=== PATIENT | female | born 1995 | race Caucasian/White ===

== ENCOUNTER 2019-02-14 11:04 | Emergency (ER) | payer MEDICAID ==
[~2019-02-14] VITALS: Ht 170.2 cm; Wt 82.0 kg
[~2019-02-14 11:04] MED LIST: NORG1TAB77 PO
--- NOTE | 2019-02-14 12:50 | NUR ---
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
--- NOTE | 2019-02-14 13:19 | NUR ---
DR BOLTON AT BEDSIDE TO EVRIGO PT
[2019-02-14] MEDS ORDERED: chlordiazePOXIDE 25mg capsule PO ONE (13:30)
--- NOTE | 2019-02-14 13:32 | NUR ---
DROP HAMMER PILE DRIVER OPERATOR AT BEDSIDE
[2019-02-14] MEDS ORDERED: DIME240C2 PO (13:38)
[2019-02-14] MEDS ORDERED: LURA80TA3 PO (13:38)
[2019-02-14] MEDS ORDERED: FLUO40CA10 PO (13:38)
[2019-02-14 13:44] LABS: URINE HCG NEGATIVE (NEG)
[2019-02-14 13:47] LABS: BASOPHILS # (AUTO) 0.1 X10'3 (0-0.2); EOSINOPHILS # (AUTO) 0.3 X10'3 (0-0.9); EOSINOPHILS % (AUTO) 4.4 % (0-6); HEMATOCRIT 40.8 % (35.0-45.0); HEMOGLOBIN 13.9 g/dl (12.0-16.0); LYMPHOCYTES # (AUTO) 1.7 X10'3 (1.1-4.8); MEAN CORPUSCULAR HEMOGLOBIN 32.4 PG (27.0-31.0); MEAN CORPUSCULAR HGB CONC 34.1 g/dL (33.0-36.5); MEAN CORPUSCULAR VOLUME 94.9 FL (78-98); MEAN PLATELET VOLUME 7.3 FL (7.4-10.4); MONOCYTES # (AUTO) 0.7 X10'3 (0-0.9); MONOCYTES % (AUTO) 11.4 % (2-12); NEUTROPHILS # (AUTO) 3.3 X10'3 (1.8-7.7); NEUTROPHILS % (AUTO) 55.2 % (42-75); PLATELET COUNT 312 X10'3 (140-440); RED BLOOD COUNT 4.29 X10'6 (4.20-5.60); RED CELL DISTRIBUTION WIDTH 13.5 % (11.5-14.5)
[2019-02-14 13:47] LABS: CLARITY,URINE CLEAR (Clear); COLOR,URINE YELLOW (Yellow); GLUCOSE, URINE NEGATIVE (Neg); KETONES,URINE NEGATIVE (Neg); LEUKOCYTE ESTERASE ,URINE NEGATIVE (Neg); NITRITES, URINE NEGATIVE (Neg); OCCULT BLOOD,URINE TRACE-INTACT (Neg); PROTEIN,URINE NEGATIVE (Neg); UROBILINOGEN,URINE 0.2 E.U/dL (0.2-1.0)
[2019-02-14 13:52] LABS: URINE AMPHETAMINE SCREEN NEGATIVE (Neg); URINE BARBITUATE SCREEN NEGATIVE (Neg); URINE BENZODIAZEPINES SCREEN NEGATIVE (Neg); URINE CANNABINOID SCREEN POSITIVE (Neg); URINE COCAINE SCREEN NEGATIVE (Neg); URINE METHADONE SCREEN NEGATIVE (Neg); URINE OPIATE SCREEN NEGATIVE (Neg); URINE PHENCYCLIDINE SCREEN NEGATIVE (Neg)
[2019-02-14 13:53] LABS: UA COLLECTION TYPE CLN CATCH MIDSTREAM
--- NOTE | 2019-02-14 13:54 | NUR ---
PT IS EMOTIONAL AND CRYING, "I AM SCARED...I DON'T KNOW WHAT IS GOING TO HAPPEN", EXPLAINED PLAN OF CARE TO PT AND REASSSURED HER, PT SYLVIA PO MED WELL
[2019-02-14 13:55] LABS: BACTERIA,URINE 3+ /HPF (Neg); RBC,URINE 0-2 /HPF (0-2); SQUAMOUS EPITHELIAL CELL,UR MODERATE /LPF (FEW)
[2019-02-14 13:56] LABS: ALANINE AMINOTRANSFERASE 25 U/L (12-78); ALBUMIN 3.9 G/DL (3.4-5.0); ALKALINE PHOSPHATASE 69 IU/L (46-116); ANION GAP 14 (8-16); ASPARTATE AMINO TRANSFERASE 16 U/L (10-37); BILIRUBIN,TOTAL 0.2 MG/DL (0.1-1.0); BLOOD UREA NITROGEN 13 MG/DL (7-18); BUN/CREATININE RATIO 21.3 (6.6-38.0); CALCIUM 8.9 MG/DL (8.5-10.1); CHLORIDE 99 MMOL/L (99-107); CREATININE 0.61 MG/DL (0.40-0.90); GLUCOSE 94 MG/DL (70-104); POTASSIUM 3.8 MMOL/L (3.5-5.1); SODIUM 138 MMOL/L (135-145); TOTAL CARBON DIOXIDE 24.6 MMOL/L (24-32); eGFR > 90 ML/MIN
--- NOTE | 2019-02-14 14:05 | NUR ---
PT HAS YOGURT AND CHEESE AT BEDSIDE, NOT EATING AT THIS TIME, ALSO HAS PITCHER OF ICE WATER
--- NOTE | 2019-02-14 14:23 | NUR ---
PT IS TALKING ON PHONE TO FAMILY, CALM AND COOPERATIVE
[2019-02-14] MEDS ORDERED: ONDA4TAB6 PO (14:35)
[2019-02-14] MEDS ORDERED: CHLO1CAP PO (14:35)
--- NOTE | 2019-02-14 15:13 | NUR ---
PACKET FAXED TO [facility], GAVE PT WARM BLANKET, SHE IS LYING QUIETLY ON BED
--- NOTE | 2019-02-14 15:27 | NUR ---
CALLED [facility] OFF[facility], THEY HAVE RECEIVED PACKET
--- NOTE | 2019-02-14 16:33 | NUR ---
pt is resting at this time
--- NOTE | 2019-02-14 17:00 | NUR ---
pt resting in bed. very tearful
--- NOTE | 2019-02-14 18:06 | NUR ---
no concerns at this time. pt resting
--- NOTE | 2019-02-14 18:37 | NUR ---
Patient is awake, sitting at bedside. She is being interviewed by Dez Reveles RN, [facility].
--- NOTE | 2019-02-14 19:55 | NUR ---
Patient is being visited by her mother. Her thought process is linear.
[2019-02-14] MEDS: TECFIDERA 240 MG PO SCH (20:15)
--- NOTE | 2019-02-14 20:37 | NUR ---
NOC RX medications given. This patient is sleeping now. Q15 minute rounding being done. Patients bed is locked in low position, two rails up, in view from the nursing station.
--- NOTE | 2019-02-14 20:41 | NUR ---
Patient ate a small yogurt with assistance from this RN. No difficulty in swallowing. Patient given a pillow and warm blankets. She is resting quietly now.
[2019-02-14] MEDS ORDERED: lurasidone 20mg tablet PO SCH (21:00)
--- NOTE | 2019-02-14 22:43 | NUR ---
Covering for primary RN. Pt resting comfortably.
--- NOTE | 2019-02-14 23:33 | NUR ---
Report to Shubham at [facility], possible transfer pending, not at this time however.
--- NOTE | 2019-02-15 02:08 | NUR ---
Patient is sleeping quietly, low fowlers in bed.
[2019-02-15 05:48] VITALS: BP 99/51
--- NOTE | 2019-02-15 07:00 | NUR ---
PT AWAKE AND AMBULATING TO BATHROOM
[2019-02-15] MEDS: TECFIDERA 240 MG PO SCH (07:19)
[2019-02-15] MEDS ORDERED: FLUoxetine 20mg capsule PO SCH (08:00)
--- NOTE | 2019-02-15 08:00 | NUR ---
PT UPSET AND CRYING
[2019-02-15] MEDS ORDERED: LORazepam 1 MG tablet PO ONE (08:45)
--- NOTE | 2019-02-15 09:05 | NUR ---
CALLED UP STAIR, TRYING TO GET PLACED UPSTAIRS
== END 2019-02-15 12:30 ==
LOC: ER 11:05
DX: F41.9 Anxiety disorder, unspecified (principal); F10.20 Alcohol dependence, uncomplicated; R45.851 Suicidal ideations; G35 Multiple sclerosis; F43.10 Post-traumatic stress disorder, unspecified; R11.10 Vomiting, unspecified; Z79.899 Other long term (current) drug therapy; Z88.0 Allergy status to penicillin; Y90.9 Presence of alcohol in blood, level not specified
CPT/HCPCS: 36415; 80053; 80305; 80320; 81001; 81025; 84443; 85025; 99285

== ENCOUNTER 2019-02-15 11:41 | Inpatient (IN) | payer MEDICAID ==
[~2019-02-15] VITALS: Ht 170.2 cm; Wt 83.0 kg
[~2019-02-15 11:41] MED LIST changes: +CHLO1CAP PO; +DIME240C2 PO; +FLUO40CA10 PO; +LURA80TA3 PO; -NORG1TAB77 PO; +ONDA4TAB6 PO
[2019-02-15] MEDS ORDERED: mag hydrox/Alum hydrox/simeth 30ml oral suspension PO PRN (12:40)
[2019-02-15] MEDS ORDERED: acetaminophen 325mg tablet PO PRN ×2 (12:40)
[2019-02-15] MEDS ORDERED: tuberculin, purif. prot. deriv. 5 units/0.1ml ID ONE (12:40)
[2019-02-15] MEDS ORDERED: magnesium hydroxide 30ml (MOM) UD suspension PO PRN (12:40)
[2019-02-15] MEDS ORDERED: loperamide 2mg capsule PO PRN (12:40)
[2019-02-15] MEDS ORDERED: LORazepam 1 MG tablet PO PRN (12:40)
[2019-02-15 13:29] VITALS: BP 148/98
[2019-02-15] MEDS: LORazepam 1 MG tablet PO SCH ×2 (14:18→20:11)
[2019-02-15 14:19] VITALS: BP 147/100
--- NOTE | 2019-02-15 14:22 | NUR ---
Admission Note: Patient arrived on unit from [facility] ER via ambulations accompanied by Maurilio MCCLAIN, and security threat analyst. Attmitted with Depression NOS with SI. Describes plan as using dog leash over her door and hanging herself. Has multiple minor cuts to LFA, reports history of cutting without intent to kill herself. Placed in shower and skin check completed. Patient presents anxious with bilateral arm tremors. All personal items inventoried and secured safely. During intake assessment, noted to have significantly elevated BP, and tremors bilateral upper arms. Has history of ETOH abuse recently with last intake 02/14 AM of 2 beers. Reports significant losses in her life described as failing out of Graduate school and having to return home. Attended group shortly after arrival. Dr. Guallpa notified of potential symptoms of ETOH withdrawal with orders for treatment. Patient is A & O X 4, mildly anxious, cooperative, linear thought process, focused on getting better.
--- NOTE | 2019-02-15 14:47 | NUR ---
Nursing Progress Note: Legal hold:5150 Client on voluntary/involuntary status for DTS. Report received from Galo BRIGGS Why are they here:Depression NOS: Verbalized plan to hang herself using her dogs leash. Has experienced significant loss r/t failing out of graduate school and having to return home. Observed multiple minor cuts to LFA patient states hx. of cutting without intent to kill herself. Assessment What has happened this shift:See admit note S/I, H/I:SI Plan to hang herself with dogs leash A/VH: Denies Sleep:Poor sleep r/t recent URI and dry cough ADL's:Independent Group attendance:Yes Were meds taken:Yes Any med S/E none observed Mental Status Exam Appearance:Neat, clean appearance presented in green scrubs Eye contact:Fair Behavior: cooperative, friendly, Speech:WNL Mood:Depressed, anxious Affect:congruent with mood Thought process:Linear Thought Content:SI, Student loan debt without success completion of school Cognition:A & O X 4 Insight:fair Judgment:fair Interventions PRN's used:Ativan Therapeutic interventions: 1:1 assessment, active listening, medication administration and education, Q15 minute checks, maintained therapeutic milieu. Restraints/seclusion/emergency medication: N/A Justification of Continued Inpatient Treatment: The patient presents as having significant depressive symptoms that they interfere with any kind of self care. Pt needs continued monitoring of medication effectiveness
[2019-02-15 15:30] VITALS: BP 140/95
[2019-02-15 16:30] VITALS: BP 144/97
[2019-02-15] MEDS: hydrOXYzine 25 MG tablet PO PRN (19:06)
[2019-02-15 20:00] VITALS: BP 153/103
[2019-02-15] MEDS: TECFIDERA PO SCH (20:00)
[2019-02-15] MEDS ORDERED: DIMETHYL FUMARATE PO SCH (20:00)
[2019-02-15] MEDS ORDERED: non-formulary drug (Ondansetron Hcl (Zofran) 1 TAB) PO SCH (20:00)
[2019-02-15] MEDS: ondansetron 4mg rapidly disintigrating tab PO SCH (20:11)
[2019-02-15] MEDS: lurasidone 20mg tablet PO SCH (21:28)
--- NOTE | 2019-02-15 22:00 | NUR ---
Nursing Progress Note: Legal hold:5150 Client on involuntary status for DTS. Report received from Galo BRIGGS Why are they here:Depression NOS: Verbalized plan to hang herself using her dogs leash. Has experienced significant loss r/t failing out of graduate school and having to return home. Observed multiple minor cuts to LFA patient states hx. of cutting without intent to kill herself. Assessment What has happened this shift: Pt was sitting in her bed at change of shift. Pt was very anxious, administered tylenol and atarax, w/good effect. Pt states she is here because her mother told her if she didn't stop drinking she would have to move out and she is worried she can't afford to live on her own. Pt doesn't feel like she can stop drinking at this point. She is concerned about going into an etoh rehab and not being able to go to work. Pt reports her appetite is "alright at the moment." She reports a small amount of diarrhea prior to shift change and she has mild tremors. Pt spent the evening visiting w/her parents prior to taking evening meds. Pt quickly became agitated when she was told we are waiting for her Tecfidera for her MS from the pharmacy. She argued saying she was given the tecfidera this morning and I should have it. Explained that I don't and that I had sent a message to the pharmacy. She then asked for prozac and latuda which were not listed in her EMAR. Explained to pt that it wasn't listed and I would look into and she continued to be agitated and argumentative. Offered to show pt that I did not have it listed and requested pt allow me to look into it. She immediately went to the charge nurse complaining she did not have the meds, and the charge nurse also told her we were checking on it. She then called her mother telling her that we weren't giving her, her medications. Med rec was faxed to pharmacy and Meds were located in ER overflow and pt was given her medications. pt fell asleep shortly after calling her mother, she is on CIWA protocol and appeared to be sleeping comfortably and denied symptoms when she awaken for vitals/CIWA at 2130. S/I, H/I: Denies A/VH: Denies Sleep:Poor sleep ADL's:Independent Group attendance:Yes Were meds taken:Yes Any med S/E none observed Mental Status Exam Appearance:Neat, clean appearance presented in green scrubs Eye contact:Fair Behavior: Labile, cooperative, friendly, then quickly becomes agitated Speech:WNL Mood:Depressed, anxious Affect: labile Thought process:Linear Thought Content: Medications, worried what she will do if her mother kicks her out and she can't afford to pay her bills, rent etc and thinks she wont be able to stop drinking. Cognition:A & O X 4 Insight:fair Judgment:fair Interventions PRN's used:Ativan, atarax, tylenol Therapeutic interventions: 1:1 assessment, active listening, medication administration and education, Q15 minute checks, maintained therapeutic milieu. Restraints/seclusion/emergency medication: N/A Justification of Continued Inpatient Treatment: The patient presents as having significant depressive symptoms that they interfere with any kind of self care. Pt needs continued monitoring of medication effectiveness
[2019-02-16] MEDS: ondansetron 4mg rapidly disintigrating tab PO SCH ×4 (02:00→20:28)
[2019-02-16 07:25] VITALS: BP 120/84
[2019-02-16] MEDS: LORazepam 1 MG tablet PO SCH ×3 (07:57→20:28)
[2019-02-16] MEDS ORDERED: FLUoxetine 20mg capsule PO SCH ×2 (08:00→09:20)
[2019-02-16] MEDS: TECFIDERA PO SCH ×2 (08:04→20:29)
[2019-02-16 08:30] LABS: CHOL/HDL RATIO 1.9 (0.00-4.99); CHOLESTEROL 153 MG/DL (0-200); HDL CHOLESTEROL 82 MG/DL (35-60); LDL CHOLESTEROL 57 MG/DL (50-100); TRIGLYCERIDES 77 MG/DL (20-135)
--- NOTE | 2019-02-16 11:26 | NUR ---
Nursing Progress Note: Legal hold:5150 Client on involuntary status for DTS. Report received from Galo BRIGGS Why are they here:Depression NOS: Verbalized plan to hang herself using her dogs leash. Has experienced significant loss r/t failing out of graduate school and having to return home. Observed multiple minor cuts to LFA patient states hx. of cutting without intent to kill herself. Assessment What has happened this shift: Pt was sitting in her bed this am when assessment was conducted. Client states that she has identified a sponsor for AA and plans to attend after discharge. Client also identified coping skills for discharge and has asked her parents to remove all alcohol from their home. Client plans to resume work after discharge and plans to be compliant with aftercare. This client admits to a real struggle with the cessation of her drinking but is hopeful that it can be done with much support. Vital signs are stable and client voices no issues or problems at this time. S/I, H/I: Denies A/VH: Denies Sleep:Poor sleep ADL's:Independent Group attendance:Yes Were meds taken:Yes Any med S/E none observed Mental Status Exam Appearance:Neat, clean appearance presented in green scrubs Eye contact:Fair Behavior: Labile, cooperative, friendly, then quickly becomes agitated Speech:WNL Mood:Depressed, anxious Affect: labile Thought process:Linear Thought Content: Medications, worried what she will do if her mother kicks her out and she can't afford to pay her bills, rent etc and thinks she wont be able to stop drinking. Cognition:A & O X 4 Insight:fair Judgment:fair Interventions PRN's used:Ativan, atarax, tylenol Therapeutic interventions: 1:1 assessment, active listening, medication administration and education, Q15 minute checks, maintained therapeutic milieu. Restraints/seclusion/emergency medication: N/A Justification of Continued Inpatient Treatment: The patient presents as having significant depressive symptoms that they interfere with any kind of self care. Pt needs continued monitoring of medication effectiveness
[2019-02-16] MEDS ORDERED: traZODone 50mg tablet PO PRN (18:20)
[2019-02-16] MEDS ORDERED: venlafaxine XR 37.5mg cap (Q24H) PO ONE (18:20)
[2019-02-16 19:35] VITALS: BP 126/85
[2019-02-16] MEDS: lurasidone 20mg tablet PO SCH (20:28)
[2019-02-16] MEDS: benzocaine/menthol oral lozeng 1 EACH BOX MM PRN (20:42)
[2019-02-16 23:20] VITALS: BP 109/69
--- NOTE | 2019-02-17 00:14 | NUR ---
Nursing Progress Note: Legal hold: 5150 Exp 02/18 @1231 Client on involuntary status for DTS. Report received from CHESTER Youssef with use of [facility] Why are they here:Depression NOS: Verbalized plan to hang herself using her dogs leash. Has experienced significant loss r/t failing out of graduate school and having to return home. Observed multiple minor cuts to LFA patient states hx. of cutting without intent to kill herself. Assessment What has happened this shift: Pt was sitting on her bed at shift change. Pt was working on lists of what triggers her to drink and what she can do when she gets triggered. Pt is hopeful. Pt states she knows someone who can be her AA sponsor. Pt has asked for support from her family, to remove the alcohol from the house. Pt's states she doesn't feel her family realized how bad her drinking is. Family will support her decisions. Pt was a little teary-eye because she war missing her brother's birthday green party, but understood she was in here trying to get better. Pt denies SI at this this time. Pt was medication compliant. Pt c/o of a cough she had prior to admission. Requested throat lozenge with relief. CIWA score 0. Pt will be started on Effexor 75mg QAM. S/I, H/I: None reported or observed. A/VH: None reported or observed. Sleep: Currently sleeping. 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 Were meds taken: Medication compliant. Any med S/E: None reported or observed. Mental Status Exam Appearance: Neat, clean wearing green scrubs Eye contact: Good Behavior: Cooperative, focused Speech: Normal rate and rhythm. Mood: Depressed, anxious, hopeful Affect: Restricted with some brightening Thought process: Linear Thought Content: Focused on discharge - not wanting to drink. Pt in room writing out triggers and coping skills. Cognition: A&O x4 Insight: Fair Judgment: Fair Interventions PRN's used: Throat lozenge for cough Therapeutic interventions: 1:1 assessment, active listening, medication administration and education, Q15 minute checks, maintained therapeutic milieu. Restraints/seclusion/emergency medication: N/A Justification of Continued Inpatient Treatment: The patient presents as having significant depressive symptoms that they interfere with any kind of self care. Pt needs continued monitoring of medication effectiveness
[2019-02-17] MEDS: ondansetron 4mg rapidly disintigrating tab PO SCH ×4 (02:00→20:51)
[2019-02-17 07:55] VITALS: BP 126/87
[2019-02-17] MEDS: venlafaxine XR 75mg capsule (Q24H) PO SCH (08:22)
[2019-02-17] MEDS: LORazepam 1 MG tablet PO SCH ×2 (08:22→13:00)
[2019-02-17] MEDS: TECFIDERA PO SCH ×2 (08:23→20:52)
[2019-02-17] MEDS: benzocaine/menthol oral lozeng 1 EACH BOX MM PRN (15:46)
--- NOTE | 2019-02-17 17:28 | NUR ---
Nursing Progress Note: Legal hold: 5150 Exp 02/18 @1231 Client on involuntary status for DTS. Report received from Eden Jolly RN with use of [facility] Why are they here:Depression NOS: Verbalized plan to hang herself using her dogs leash. Has experienced significant loss r/t failing out of graduate school and having to return home. Observed multiple minor cuts to LFA patient states hx. of cutting without intent to kill herself. Assessment What has happened this shift: Pt was laying on her bed at shift change. Pt is eager to attend therapy groups such as AA. Pt states she knows someone who can be her AA sponsor. Pt denies SI at this this time. Pt was medication compliant. Pt c/o of a cough she had prior to admission. She has PRN tsephy for relief. CIWA score has consecutively been 0. Pt started on Effexor 75mg QAM this morning. Ativan scheduled order was also changed to PRN. S/I, H/I: None reported or observed A/VH: None reported or observed Sleep: Reports good sleep ADL's: Independent Group attendance: Yes Were meds taken: Medication compliant. Any med S/E: None reported or observed. Mental Status Exam Appearance: Neat, clean wearing green scrubs, glasses, smiling Eye contact: Direct Behavior: Cooperative, pleasant Speech: Normal rate and rhythm. Mood: Hopeful Affect: congruent with mood Thought process: Linear Thought Content: Focused on discharge - not wanting to drink. Cognition: A&O x4 Insight: Fair Judgment: Fair Interventions PRN's used: Therapeutic interventions: 1:1 assessment, active listening, medication administration and education, Q15 minute checks, maintained therapeutic milieu. Restraints/seclusion/emergency medication: N/A Justification of Continued Inpatient Treatment: The patient presents as having significant depressive symptoms that they interfere with any kind of self care. Pt needs continued monitoring of medication effectiveness
[2019-02-17 19:50] VITALS: BP 127/89
[2019-02-17] MEDS: hydrOXYzine 25 MG tablet PO PRN (20:51)
[2019-02-17] MEDS: lurasidone 20mg tablet PO SCH (20:51)
--- NOTE | 2019-02-17 22:39 | NUR ---
JONI STOCK per Dr. Guallpa.
--- NOTE | 2019-02-18 00:11 | NUR ---
Nursing Progress Note: Legal hold: 5150 Exp 02/18 @1231 Client on involuntary status for DTS. Report received from CHESTER Youssef with use of SBAR Why are they here:Depression NOS: Verbalized plan to hang herself using her dogs leash. Has experienced significant loss r/t failing out of graduate school and having to return home. Observed multiple minor cuts to LFA patient states hx. of cutting without intent to kill herself. Assessment What has happened this shift: Pt was visible on unit at shift change. Pt later was seen waiting in the hallway for her parents to come an visit. It appeared visit was going well. Pt was observed later in her room very distraught and crying. Pt stated "my family would be better off without me." "I am just a burden to them." Pt explained "my mother does not understand my drinking." Pt reports that her mother referred to her visit her at [facility] as a vacation. Pt feels her parents are mad at her. Pt states she drinks because she is depressed. Pt states "I am afraid to go home, if my family doesn't understand." "I love my mom." Pt states her mother is onboard for keeping the alcohol out of the house. Pt thinks she will not be discharged when 5150 is up tomorrow. Explained that maybe it wouldn't be so bad if she had to stay a couple mor days. When asked if pt wanted to hurt herself, pt nodded yes. Pt reviewed her coping skills that she had written down. Pt contracted for safety with this RN. Pt refused Ativan "I won't get to go home if I am still taking Ativan." Pt continues to be focused on a positive discharge and on cessation of drinking. Administered 50mg Atarax with effect. Pt was compliant with medication and 1:1 assessment. CIWA score was 0. CIWA discontinued. S/I, H/I: Passive thoughts - distraught with family. Contracted for safety A/VH: None reported or observed. Sleep: Currently sleeping. ADL's: Independent Group attendance: permastone mechanic, no group. Were meds taken: Medication compliant. Any med S/E: None reported or observed. Mental Status Exam Appearance: Neat, clean wearing green scrubs Eye contact: Good Behavior: Cooperative, tearful Speech: Normal rate and rhythm. Mood: Depressed, anxious, sad Affect: Depressed Thought process: Linear Thought Content: "My family doesn't understand my drinking." (Family minimizes her addiction) Cognition: A&O x4 Insight: Good Judgment: Fair Interventions PRN's used: Atarax Therapeutic interventions: 1:1 assessment, active listening, medication administration and education, Q15 minute checks, maintained therapeutic milieu. Restraints/seclusion/emergency medication: N/A Justification of Continued Inpatient Treatment: The patient presents as having significant depressive symptoms that they interfere with any kind of self care. Pt needs continued monitoring of medication effectiveness
[2019-02-18] MEDS: ondansetron 4mg rapidly disintigrating tab PO SCH ×2 (02:00→08:02)
[2019-02-18 07:25] VITALS: BP 122/66
[2019-02-18] MEDS: venlafaxine XR 75mg capsule (Q24H) PO SCH (08:02)
[2019-02-18] MEDS: TECFIDERA PO SCH (08:05)
[2019-02-18] MEDS ORDERED: HYDR50TA65 PO (11:29)
[2019-02-18] MEDS ORDERED: VENL75CA61 PO (11:29)
[2019-02-18] MEDS ORDERED: LURA80TA3 PO (11:29)
[2019-02-18] MEDS ORDERED: TRAZ-251 PO (11:29)
--- NOTE | 2019-02-18 13:52 | NUR ---
Discharge Note: Patient tearful in a.m., stating "I just want to go home". Patient denies SI. 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 Dr. Guallpa discharged patient. Patient has all belongings, follow-up providers and dates. Pt. calm and cooperative. Escorted out by Ozzy, PCT and parents in stable condition.
== END 2019-02-18 14:37 | disposition home or self-care (01) | DRG 751 ==
LOC: ADULT MH 11:41
PROVIDERS: ADMIT Psychiatry & Neurology Psychiatry; ATTEND Psychiatry & Neurology Psychiatry
DX: F33.2 Major depressive disorder, recurrent severe without psychotic features (principal); G35 Multiple sclerosis; R45.851 Suicidal ideations; F41.9 Anxiety disorder, unspecified; F10.20 Alcohol dependence, uncomplicated; F60.3 Borderline personality disorder; Z81.8 Family history of other mental and behavioral disorders; Z88.0 Allergy status to penicillin; Z79.899 Other long term (current) drug therapy
CPT/HCPCS: 36415; 80061; 83036; 87081; 93005; J2405; Q0177

== ENCOUNTER 2019-05-30 15:44 | Emergency (ER) | payer MEDICAID ==
[~2019-05-30] VITALS: Ht 170.2 cm; Wt 87.0 kg
[~2019-05-30 15:44] MED LIST changes: -CHLO1CAP PO; -FLUO40CA10 PO; +HYDR50TA65 PO; -ONDA4TAB6 PO; +TRAZ-251 PO; +VENL75CA61 PO
[2019-05-30 16:16] LABS: BASOPHILS % (AUTO) 0.8 % (0-1); EOSINOPHILS # (AUTO) 0.1 X10'3 (0-0.9); EOSINOPHILS % (AUTO) 1.3 % (0-6); HEMATOCRIT 42.2 % (35.0-45.0); HEMOGLOBIN 14.4 g/dl (12.0-16.0); LYMPHOCYTES # (AUTO) 1.4 X10'3 (1.1-4.8); LYMPHOCYTES % (AUTO) 23.1 % (21-51); MEAN CORPUSCULAR HEMOGLOBIN 31.3 PG (27.0-31.0); MONOCYTES # (AUTO) 0.4 X10'3 (0-0.9); MONOCYTES % (AUTO) 6.2 % (2-12); NEUTROPHILS % (AUTO) 68.6 % (42-75); PLATELET COUNT 298 X10'3 (140-440); RED BLOOD COUNT 4.59 X10'6 (4.20-5.60); RED CELL DISTRIBUTION WIDTH 13.3 % (11.5-14.5); WHITE BLOOD COUNT 5.8 X10'3 (4.5-11.0)
[2019-05-30] MEDS ORDERED: ketorolac tromethamine 15mg/ml inj. IV ONE (16:30)
[2019-05-30] MEDS ORDERED: ondansetron/PF 4mg/2ml inj IV ONE (16:30)
[2019-05-30] MEDS ORDERED: normal saline 1000ML IV soln IVB ONE (16:30)
[2019-05-30 16:31] LABS: ALANINE AMINOTRANSFERASE 35 U/L (12-78); ALBUMIN 4.5 G/DL (3.4-5.0); ALBUMIN/GLOBULIN RATIO 1.2 (1.1-1.5); ALKALINE PHOSPHATASE 65 IU/L (46-116); ANION GAP 16 (8-16); ASPARTATE AMINO TRANSFERASE 33 U/L (10-37); BILIRUBIN,TOTAL 0.3 MG/DL (0.1-1.0); BLOOD UREA NITROGEN 18 MG/DL (7-18); BUN/CREATININE RATIO 23.4 (6.6-38.0); CALCIUM 9.3 MG/DL (8.5-10.1); CHLORIDE 105 MMOL/L (99-107); CREATININE 0.77 MG/DL (0.40-0.90); GLUCOSE 117 MG/DL (70-104); POTASSIUM 3.8 MMOL/L (3.5-5.1); SODIUM 145 MMOL/L (135-145); TOTAL CARBON DIOXIDE 23.9 MMOL/L (24-32); TOTAL PROTEIN 8.2 G/DL (6.4-8.2); eGFR > 90 ML/MIN
[2019-05-30 16:49] LABS: LIPASE 107 U/L (73-393)
[2019-05-30 17:37] LABS: URINE HCG NEGATIVE (NEG)
[2019-05-30 17:43] LABS: CLARITY,URINE CLOUDY (Clear); COLOR,URINE YELLOW (Yellow); GLUCOSE, URINE NEGATIVE (Neg); KETONES,URINE 40 mg/dl (Neg); LEUKOCYTE ESTERASE ,URINE NEGATIVE (Neg); NITRITES, URINE NEGATIVE (Neg); OCCULT BLOOD,URINE LARGE (Neg); PROTEIN,URINE NEGATIVE (Neg); UROBILINOGEN,URINE 0.2 E.U/dL (0.2-1.0)
[2019-05-30 17:50] LABS: UA COLLECTION TYPE CLN CATCH MIDSTREAM
[2019-05-30 17:51] LABS: RBC,URINE 20-50 /HPF (0-2); WBC,URINE 0-4 /HPF (0-4)
[2019-05-30 17:52] LABS: AMORPHOUS PHOSPHATES 4+; BACTERIA,URINE 2+ /HPF (Neg); MUCUS STRANDS MANY /LPF (Neg); SQUAMOUS EPITHELIAL CELL,UR MANY /LPF (FEW)
[2019-05-30] MEDS ORDERED: HYDR-4383 PO (18:28)
[2019-05-30] MEDS ORDERED: IBUP-1984 PO (18:28)
[2019-05-30] MEDS ORDERED: FLO0.4C PO (18:28)
[2019-05-30] MEDS ORDERED: ONDA4TAB6 PO (18:28)
--- NOTE | 2019-05-30 18:44 | NUR ---
Pt is requesting additional pain medication and something to drink. Pt informed we need to keep her NPO until CT scan report.
[2019-05-30] MEDS ORDERED: morphine 4 MG/ML inj SYRINge IV ONE (19:20)
[2019-05-30 19:57] VITALS: BP 140/95
== END 2019-05-30 20:01 | disposition home or self-care (01) ==
LOC: ER 15:44
DX: N13.2 Hydronephrosis with renal and ureteral calculous obstruction (principal); R11.2 Nausea with vomiting, unspecified; F41.9 Anxiety disorder, unspecified; Z88.0 Allergy status to penicillin; Z79.899 Other long term (current) drug therapy
CPT/HCPCS: 36415; 74176; 80053; 81001; 81025; 83690; 85025; 96361; 96374; 96375; 99284; J1885; J2270; J2405; J7030

== ENCOUNTER 2019-06-02 04:09 | Emergency (ER) | payer MEDICAID ==
[~2019-06-02] VITALS: Ht 170.2 cm; Wt 81.8 kg
[~2019-06-02 04:09] MED LIST changes: +FLO0.4C PO; +HYDR-4383 PO; +IBUP-1984 PO; +ONDA4TAB6 PO
[2019-06-02] MEDS ORDERED: magnesium 2GM in 50ml NS 50 ML IV ONE (04:25)
[2019-06-02] MEDS ORDERED: ketorolac trometh. 30mg/ml inj. IV ONE (04:25)
[2019-06-02] MEDS ORDERED: normal saline 1000ML IV soln IVB ONE (04:25)
[2019-06-02] MEDS ORDERED: meperidine/PF 50mg/ml syringe IV ONE ×2 (04:25→06:15)
[2019-06-02 04:41] LABS: CLARITY,URINE CLOUDY (Clear); COLOR,URINE AMBER (Yellow); GLUCOSE, URINE NEGATIVE (Neg); KETONES,URINE NEGATIVE (Neg); LEUKOCYTE ESTERASE ,URINE SMALL (Neg); NITRITES, URINE NEGATIVE (Neg); OCCULT BLOOD,URINE LARGE (Neg); PH,URINE 5.5 (4.8-8.0); PROTEIN,URINE 100 mg/dl (Neg); UA COLLECTION TYPE CLN CATCH MIDSTREAM; UROBILINOGEN,URINE 0.2 E.U/dL (0.2-1.0)
[2019-06-02 04:56] LABS: RBC,URINE 0-2 /HPF (0-2); WBC,URINE 20-30 /HPF (0-4)
[2019-06-02 04:57] LABS: BACTERIA,URINE 3+ /HPF (Neg); MUCUS STRANDS NONE SEEN /LPF (Neg); RENAL CELLS, URINE FEW /HPF; SQUAMOUS EPITHELIAL CELL,UR MODERATE /LPF (FEW); TRANSITIONAL EPI CELLS,URINE FEW /HPF
[2019-06-02 05:19] LABS: BASOPHILS % (AUTO) 0.2 % (0-1); EOSINOPHILS # (AUTO) 0.1 X10'3 (0-0.9); EOSINOPHILS % (AUTO) 1.5 % (0-6); HEMATOCRIT 36.4 % (35.0-45.0); HEMOGLOBIN 12.4 g/dl (12.0-16.0); LYMPHOCYTES # (AUTO) 0.4 X10'3 (1.1-4.8); LYMPHOCYTES % (AUTO) 5.1 % (21-51); MEAN CORPUSCULAR HEMOGLOBIN 31.6 PG (27.0-31.0); MEAN CORPUSCULAR HGB CONC 34.2 g/dL (33.0-36.5); MEAN CORPUSCULAR VOLUME 92.6 FL (78-98); MEAN PLATELET VOLUME 7.6 FL (7.4-10.4); MONOCYTES # (AUTO) 0.5 X10'3 (0-0.9); NEUTROPHILS # (AUTO) 6.2 X10'3 (1.8-7.7); NEUTROPHILS % (AUTO) 86.2 % (42-75); PLATELET COUNT 141 X10'3 (140-440); RED BLOOD COUNT 3.93 X10'6 (4.20-5.60); RED CELL DISTRIBUTION WIDTH 13.3 % (11.5-14.5); WHITE BLOOD COUNT 7.2 X10'3 (4.5-11.0)
[2019-06-02 05:32] LABS: ALANINE AMINOTRANSFERASE 28 U/L (12-78); ALBUMIN 2.8 G/DL (3.4-5.0); ALBUMIN/GLOBULIN RATIO 0.7 (1.1-1.5); ALKALINE PHOSPHATASE 88 IU/L (46-116); ANION GAP 13 (8-16); ASPARTATE AMINO TRANSFERASE 32 U/L (10-37); BILIRUBIN,TOTAL 0.5 MG/DL (0.1-1.0); BLOOD UREA NITROGEN 25 MG/DL (7-18); BUN/CREATININE RATIO 15.6 (6.6-38.0); CALCIUM 9.1 MG/DL (8.5-10.1); CHLORIDE 100 MMOL/L (99-107); GLUCOSE 117 MG/DL (70-104); MAGNESIUM 1.5 MG/DL (1.5-2.4); POTASSIUM 3.9 MMOL/L (3.5-5.1); SODIUM 136 MMOL/L (135-145); TOTAL CARBON DIOXIDE 22.6 MMOL/L (24-32); TOTAL PROTEIN 7.1 G/DL (6.4-8.2); eGFR 40 ML/MIN
[2019-06-02] MEDS ORDERED: CefTRIAXone 2gm/D5W 50ml 50 ML IV ONE (06:15)
[2019-06-02] MEDS ORDERED: FLO0.4C PO (06:18)
[2019-06-02] MEDS ORDERED: HYDR-4383 PO (06:18)
[2019-06-02] MEDS ORDERED: CEPH250T PO (06:18)
[2019-06-02] MEDS ORDERED: NAPR-56 PO (06:18)
[2019-06-02 06:24] LABS: LARGE PLATELETS FEW; PLATELET ESTIMATE DECREASED; TOTAL CELLS COUNTED 100
--- NOTE | 2019-06-02 06:27 | NUR ---
patient received on bed awake,reports "feeling better" pain 4/10.
[2019-06-02 07:22] VITALS: BP 105/61
[2019-06-02] MEDS ORDERED: sildenafil citrate 20mg tablet PO SCH (08:00)
== END 2019-06-02 07:34 | disposition home or self-care (01) ==
LOC: ER 04:13
DX: N23 Unspecified renal colic (principal); N13.30 Unspecified hydronephrosis; N39.0 Urinary tract infection, site not specified; G35 Multiple sclerosis; F41.9 Anxiety disorder, unspecified; Z88.0 Allergy status to penicillin; Z79.899 Other long term (current) drug therapy; Z87.442 Personal history of urinary calculi
CPT/HCPCS: 36415; 80053; 81001; 83735; 85025; 87077; 87088; 87186; 96365; 96366; 96368; 96375; 96376; 99283; J0696; J1885; J2175; J3475; J7030; 96374

== ENCOUNTER 2019-07-04 08:53 | Emergency (ER) | payer MEDICAID ==
[~2019-07-04] VITALS: Ht 170.2 cm; Wt 85.1 kg
[~2019-07-04 08:53] MED LIST changes: -FLO0.4C PO; -IBUP-1984 PO
[2019-07-04 10:21] LABS: URINE HCG NEGATIVE (NEG)
[2019-07-04 10:23] LABS: BASOPHILS % (AUTO) 0.6 % (0-1); EOSINOPHILS # (AUTO) 0.1 X10'3 (0-0.9); EOSINOPHILS % (AUTO) 1.6 % (0-6); HEMATOCRIT 35.5 % (35.0-45.0); HEMOGLOBIN 12.2 g/dl (12.0-16.0); LYMPHOCYTES # (AUTO) 1.3 X10'3 (1.1-4.8); LYMPHOCYTES % (AUTO) 22.6 % (21-51); MEAN CORPUSCULAR HEMOGLOBIN 30.4 PG (27.0-31.0); MEAN CORPUSCULAR HGB CONC 34.4 g/dL (33.0-36.5); MEAN CORPUSCULAR VOLUME 88.5 FL (78-98); MEAN PLATELET VOLUME 6.1 FL (7.4-10.4); MONOCYTES # (AUTO) 0.7 X10'3 (0-0.9); MONOCYTES % (AUTO) 11.2 % (2-12); NEUTROPHILS # (AUTO) 3.8 X10'3 (1.8-7.7); PLATELET COUNT 474 X10'3 (140-440); RED BLOOD COUNT 4.01 X10'6 (4.20-5.60); RED CELL DISTRIBUTION WIDTH 13.3 % (11.5-14.5); WHITE BLOOD COUNT 5.9 X10'3 (4.5-11.0)
[2019-07-04 10:23] LABS: CLARITY,URINE SLIGHTLY CLOUDY (Clear); COLOR,URINE YELLOW (Yellow); GLUCOSE, URINE NEGATIVE (Neg); KETONES,URINE 15 mg/dl (Neg); LEUKOCYTE ESTERASE ,URINE SMALL (Neg); NITRITES, URINE NEGATIVE (Neg); OCCULT BLOOD,URINE TRACE-INTACT (Neg); PROTEIN,URINE TRACE mg/dl (Neg); UROBILINOGEN,URINE 0.2 E.U/dL (0.2-1.0)
[2019-07-04 10:24] LABS: UA COLLECTION TYPE CLN CATCH MIDSTREAM
[2019-07-04] MEDS ORDERED: LORazepam 1 MG tablet PO ONE ×2 (10:30→17:00)
[2019-07-04 10:32] LABS: ALANINE AMINOTRANSFERASE 25 U/L (12-78); ALBUMIN 3.5 G/DL (3.4-5.0); ALBUMIN/GLOBULIN RATIO 0.7 (1.1-1.5); ALKALINE PHOSPHATASE 91 IU/L (46-116); ANION GAP 12 (8-16); ASPARTATE AMINO TRANSFERASE 26 U/L (10-37); BILIRUBIN,TOTAL 0.4 MG/DL (0.1-1.0); BLOOD UREA NITROGEN 14 MG/DL (7-18); BUN/CREATININE RATIO 17.5 (6.6-38.0); CALCIUM 9.6 MG/DL (8.5-10.1); CHLORIDE 102 MMOL/L (99-107); GLUCOSE 90 MG/DL (70-104); POTASSIUM 4.2 MMOL/L (3.5-5.1); SODIUM 138 MMOL/L (135-145); TOTAL CARBON DIOXIDE 23.7 MMOL/L (24-32); TOTAL PROTEIN 8.7 G/DL (6.4-8.2); eGFR 88 ML/MIN
[2019-07-04 10:33] LABS: HYALINE CASTS 0-3 /LPF (NEGATIVE); MUCUS STRANDS MODERATE /LPF (Neg); SQUAMOUS EPITHELIAL CELL,UR MODERATE /LPF (FEW)
[2019-07-04 10:34] LABS: ETHANOL < 0.010 GM/DL (0.0-0.010)
--- NOTE | 2019-07-04 10:34 | NUR ---
pt is laying in bed resting asked for something for anxity ativan was ordered and given
[2019-07-04 10:36] LABS: BACTERIA,URINE FEW /HPF (Neg)
[2019-07-04 10:37] LABS: RBC,URINE 0-2 /HPF (0-2)
[2019-07-04 10:38] LABS: URINE AMPHETAMINE SCREEN NEGATIVE (Neg); URINE BARBITUATE SCREEN NEGATIVE (Neg); URINE BENZODIAZEPINES SCREEN NEGATIVE (Neg); URINE CANNABINOID SCREEN POSITIVE (Neg); URINE COCAINE SCREEN NEGATIVE (Neg); URINE METHADONE SCREEN NEGATIVE (Neg); URINE OPIATE SCREEN NEGATIVE (Neg); URINE PHENCYCLIDINE SCREEN NEGATIVE (Neg)
[2019-07-04 10:40] LABS: AMORPHOUS PHOSPHATES 1+
--- NOTE | 2019-07-04 11:00 | NUR ---
in bed resting demed lights to let her rest
[2019-07-04] MEDS: sulfamethoxazole/trimethoprim DS (800/160mg) tablet PO SCH ×2 (11:04→20:40)
--- NOTE | 2019-07-04 11:52 | NUR ---
in bed resting no suicide attimpts
--- NOTE | 2019-07-04 12:00 | NUR ---
seen moving around in bed no complantes at this time
--- NOTE | 2019-07-04 13:42 | NUR ---
in bed trying to sleep rise and fall of chest noted
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
--- NOTE | 2019-07-04 16:41 | NUR ---
SITTING UP IN BED APPEARS TO BE CRYING ASKED IF THERE IS ANYTHING WORNG AND IF I COULD DO ANYTHING FOR HER AND SHE JUST RESPOTED NO WILL CONT TO WATCH
[2019-07-04 17:15] LABS: HIV ANTIBODY 1&2 RAPID NON-REACTIVE (Neg)
--- NOTE | 2019-07-04 17:43 | NUR ---
SITTING UP IN BED SAYS THE ATIVAN HAS HELP. SHE IS NOT CRYING AT THIS TIME
[2019-07-04] MEDS ORDERED: HYDR-3686 PO (19:56)
[2019-07-04] MEDS ORDERED: TRAZ-219 PO (19:57)
[2019-07-04] MEDS ORDERED: LURA80TA3 PO (19:57)
[2019-07-04] MEDS ORDERED: VENL-190 PO (19:58)
--- NOTE | 2019-07-04 20:40 | NUR ---
PATIENT CRYING AFTER TALKING TO HER MOTHER ON THE PHONE
--- NOTE | 2019-07-04 20:55 | NUR ---
SPOKE WITH PHARMACIST TO RETIME THE "MORNING AFTER PILL" FOR 0600 07/05/19 BECAUSE THE FIRST DOSE WAS GIVEN AT 1814
[2019-07-04] MEDS ORDERED: ondansetron 4mg rapidly disintigrating tab PO PRN (21:10)
[2019-07-04] MEDS ORDERED: lurasidone 20mg tablet PO SCH (21:11)
[2019-07-04] MEDS ORDERED: traZODone 50mg tablet PO SCH (21:12)
--- NOTE | 2019-07-04 21:23 | NUR ---
Did not administer ogesterel at 1999 - verified with pharmacist that doses should be 12 hours apart and last dose was at approx 1830. Dose number 2 needs to be retimed for 07/05 at approx 0600.
--- NOTE | 2019-07-04 23:28 | NUR ---
Pt resting quietly, respirations normal, no s/s of distress.
--- NOTE | 2019-07-05 01:00 | NUR ---
Pt resting quietly, respirations normal, no s/s of distress.
--- NOTE | 2019-07-05 02:00 | NUR ---
Pt resting quietly, respirations normal, no s/s of distress.
--- NOTE | 2019-07-05 03:00 | NUR ---
Pt resting quietly, respirations normal, no s/s of distress.
--- NOTE | 2019-07-05 04:38 | NUR ---
Pt resting quietly, respirations normal, no s/s of distress.
[2019-07-05 05:57] VITALS: BP 136/68
--- NOTE | 2019-07-05 06:50 | NUR ---
Patient awake, alert and calm. Patient asking for an Ativan. RN advised patient that we try not to give benzodiazepines for anxiety. RN advised patient that she could get her Atarax 100 mg just after 7. Patient verbalized understanding.
[2019-07-05] MEDS: hydrOXYzine 25 MG tablet PO SCH ×2 (07:01)
--- NOTE | 2019-07-05 07:50 | NUR ---
Patient calm and laying in bed. No distress observed. Continue to monitor.
[2019-07-05] MEDS ORDERED: venlafaxine XR 75mg capsule (Q24H) PO SCH (08:00)
--- NOTE | 2019-07-05 08:15 | NUR ---
Patient sitting up in bed eating her breakfast. No distress observed.
[2019-07-05] MEDS: sulfamethoxazole/trimethoprim DS (800/160mg) tablet PO SCH (08:24)
--- NOTE | 2019-07-05 09:15 | NUR ---
Patient laying on right side. Respirations equal and nonlabored. No distress observed. Continue to monitor.
[2019-07-06 08:10] LABS: HBSAG SCREEN Negative (Negative); HEP A AB, IGM Negative (Negative); HEP B CORE AB, IGM Negative (Negative); HEPATITIS C ANTIBODY <0.1 s/co ratio (0.0-0.9)
[2019-07-07 13:10] LABS: HSV 1 PCR Negative (Negative); HSV 2 PCR Negative (Negative)
== END 2019-07-05 10:40 ==
LOC: ER 08:53
DX: F32.9 Major depressive disorder, single episode, unspecified (principal); N39.0 Urinary tract infection, site not specified; F41.9 Anxiety disorder, unspecified; Z88.0 Allergy status to penicillin; Z79.899 Other long term (current) drug therapy
CPT/HCPCS: 36415; 80053; 80074; 80305; 80320; 81001; 81025; 84443; 85025; 86703; 87529; 99285; Z7610